=== PATIENT | male | born 1970 | race African-American/Black ===

== ENCOUNTER 2020-06-05 10:43 | Outpatient (CLI) | payer OTHER, SELFPAY ==
--- NOTE | 2020-06-05 11:23 | EST_ITS ---
Patient Info Name: Fernando Rg Age: 49 years : 1970 Gender: Male Ht: 71 in Wt: 275 lbs BSA: 2.55 m2 Exam Date: 06/05/2020 11:34 AM Exam Location: [facility] Stress Patient Status: Outpatient Admit Date: 06/05/2020 Staff Ordering Physician: Della Landaverde NP Attending Provider: Della Landaverde NP Exercise Technologist: Shantelle Frederick RDCS Exercise Physician: Jesus Manuel Lagunas DO Exam Type: CA stress test treadmill Study Info Indications R07.9 - Chest pain, unspecified A treadmill exercise stress test was performed. Summary 1. 1. Negative Nathen exercise stress test for ischemic ST changes by ECG criteria. 2. 2. Good functional capacity, achieving 10 METs of workload. 3. 3. Appropriate HR response to exercise. 4. 4. Appropriate HR recovery at 1 minute post exercise. 5. 5. No imaging with stress testing. 6. 6. Patient informed of the above results. Protocol: Nathen Stress ECG Details Stage: REST Duration (min): 3 min : 19 sec Speed (mph): 0.0 Grade (%): 0 HR (bpm): 79 SBP (mmHg): 136 DBP (mmHg): 98 METS: --- Stage: REST Duration (min): 5 min : 48 sec Speed (mph): 0.0 Grade (%): 0 HR (bpm): 80 SBP (mmHg): 136 DBP (mmHg): 98 METS: --- Stage: STAGE 1 Duration (min): 1 min : 0 sec Speed (mph): 1.7 Grade (%): 10 HR (bpm): 103 SBP (mmHg): 136 DBP (mmHg): 98 METS: --- Stage: STAGE 1 Duration (min): 2 min : 0 sec Speed (mph): 1.7 Grade (%): 10 HR (bpm): 114 SBP (mmHg): 136 DBP (mmHg): 98 METS: --- Stage: STAGE 1 Duration (min): 3 min : 0 sec Speed (mph): 1.7 Grade (%): 10 HR (bpm): 115 SBP (mmHg): 183 DBP (mmHg): 63 METS: --- Stage: STAGE 2 Duration (min): 1 min : 0 sec Speed (mph): 2.5 Grade (%): 12 HR (bpm): 124 SBP (mmHg): 183 DBP (mmHg): 63 METS: --- Stage: STAGE 2 Duration (min): 2 min : 0 sec Speed (mph): 2.5 Grade (%): 12 HR (bpm): 129 SBP (mmHg): 202 DBP (mmHg): 74 METS: --- Stage: STAGE 2 Duration (min): 3 min : 0 sec Speed (mph): 2.5 Grade (%): 12 HR (bpm): 133 SBP (mmHg): 202 DBP (mmHg): 74 METS: --- Stage: STAGE 3 Duration (min): 1 min : 0 sec Speed (mph): 3.4 Grade (%): 14 HR (bpm): 150 SBP (mmHg): 176 DBP (mmHg): 69 METS: --- Stage: STAGE 3 Duration (min): 2 min : 0 sec Speed (mph): 3.4 Grade (%): 14 HR (bpm): 159 SBP (mmHg): 176 DBP (mmHg): 69 METS: --- Stage: STAGE 3 Duration (min): 2 min : 33 sec Speed (mph): 3.4 Grade (%): 14 HR (bpm): 168 SBP (mmHg): 176 DBP (mmHg): 69 METS: --- Stage: RECOVERY Duration (min): 0 min : 26 sec Speed (mph): 0.0 Grade (%): 0 HR (bpm): 163 SBP (mmHg): 134 DBP (mmHg): 79 METS: --- Stage: RECOVERY Duration (min): 1 min : 26 sec Speed (mph):
== END 2020-06-05 10:44 | disposition home or self-care (01) ==
PROVIDERS: PCP Internal Medicine; Visit Provider Nurse Practitioner
DX: R07.9 Chest pain, unspecified (principal)
CPT/HCPCS: 93017

== ENCOUNTER 2020-06-06 15:13 | Outpatient (CLI) | payer OTHER, SELFPAY ==
--- NOTE | ~2020-06-06 | CT_ITS ---
EXAMINATION: CT diagnostic chest wo con EXAM DATE: 06/06/2020 15:44 INDICATION: R91.1 - Solitary pulmonary nodule. TECHNIQUE: Spiral CT of the chest without contrast. Axial, coronal and sagittal images were reviewe d. Coronal maximum intensity pixel images of chest reviewed. The dose-length product (DLP) for this examination was 370.51 mGy-cm. The exposure was tailored according to patient size (auto mA exposur e control), and iterative reconstruction (ASIR) was used as additional dose reduction technique. The re is no prior study for comparison. FINDINGS: There is nodule measuring about 6 mm greatest axial dimension within the left upper lobe. Could be postinfectious but there are also some small spiculation suspected. Recommend 3 month follow -up low-dose chest CT. There is lingular calcified granuloma and some linear scarring. Other smaller regions of scattered postinfectious residua. There are no pleural or pericardial effusions. Tracheobronchial tree is patent. There is no media stinal, hilar or axillary lymphadenopathy. There is no pneumothorax. Heart normal in size. No e vidence of coronary arterial calcification. Upper abdomen is unremarkable. The bones are unremarka ble. IMPRESSION: 1. Indeterminate left upper lobe 6 mm nodule; recommend 3 month follow-up chest CT without contrast. 2. Scattered regions of post infectious residua. Reviewed, dictated and finalized at location A. IMPRESSION: 1. Indeterminate left upper lobe 6 mm nodule; recommend 3 month follow-up ches t CT without contrast. 2. Scattered regions of post infectious residua.
== END 2020-06-06 15:14 | disposition home or self-care (01) ==
PROVIDERS: PCP Internal Medicine; Visit Provider Nurse Practitioner
DX: R91.1 Solitary pulmonary nodule (principal)
CPT/HCPCS: 71250

== ENCOUNTER 2020-09-16 10:04 | Outpatient (CLI) | payer OTHER, SELFPAY ==
--- NOTE | ~2020-09-16 | CT_ITS ---
EXAMINATION: CT diagnostic chest wo con EXAM DATE: 09/16/2020 10:40 INDICATION: R91.1 - Solitary pulmonary nodule. TECHNIQUE: Spiral CT of the chest without contrast. Axial, coronal and sagittal images of the chest were reviewed. Coronal maximum intensity pixel images of chest reviewed. The dose-length product ( DLP) for this examination was 274.87 mGy-cm. The exposure was tailored according to patient size (au to mA exposure control), and iterative reconstruction (ASIR) was used as additional dose reduction [place]. Comparison is made to prior examination from 06/06/2020. FINDINGS: Previously seen indeterminate left upper lobe 6 mm nodule has resolved. This was probably inflammatory process. Lingular calcified granuloma and other scattered bibasilar and lingular postinf ectious residua unchanged. No suspicious findings. There are no pleural or pericardial effusions. Tracheobronchial tree is patent. There is no mediastinal, hilar or axillary lymphadenopathy. Ther e is no pneumothorax. Heart normal in size. No evidence of coronary arterial calcification. Uppe r abdomen is unremarkable. There is thoracic spondylosis without osteoblastic or osteolytic lesions identified. IMPRESSION: 1. Resolution of previously seen left upper lobe nodule. 2. Scattered postinfectious residua. Reviewed, dictated and finalized at location G.
== END 2020-09-16 10:05 | disposition home or self-care (01) ==
LOC: ANHIMG 10:07
PROVIDERS: PCP Internal Medicine; Visit Provider Nurse Practitioner
DX: R91.1 Solitary pulmonary nodule (principal)
CPT/HCPCS: 71250

== ENCOUNTER → 2020-12-01 01:23 | Outpatient (CLI) | payer OTHER, SELFPAY ==
[2020-12-01 19:38] LABS: SARS-CoV-2 RNA PCR Negative
== END ==
PROVIDERS: PCP Internal Medicine; Visit Provider Internal Medicine Gastroenterology
DX: Z20.822 Contact with and (suspected) exposure to COVID-19 (principal)
CPT/HCPCS: C9803; U0003; U0005

== ENCOUNTER 2020-12-04 02:23 | Day surgery (SDC) | payer OTHER, SELFPAY ==
[2020-11-23 14:09] VITALS: BMI 38.4
[2020-12-04 11:00] VITALS: BP 158/118; PULSE 87; RESP 18; TEMP 36; O2SAT 99; BMI 38.7
[2020-12-04] MEDS: LACTATED RINGERS 1,000 ML 150 ML IV CONT (11:11)
--- NOTE | 2020-12-04 11:18 | WPDANESEPPF ---
Anes - Initial Pre Proc Eval Procedure: Operation Date: 12/04/20 12:00 Proposed Procedures p Screening Colonoscopy - Joseph Parra MD Date/Time: 12/04/20 11:18 Surgeon: Joseph Parra MD Pre Op Diagnosis: neoplasm screening Patient Data Age: 50 Gender: M Height: 1.8 m Weight: 126.1 kg Last Vital Signs Temp 96.8 F L 12/04/20 11:00 Pulse 87 12/04/20 11:00 Resp 18 12/04/20 11:00 BP 158/118 H 12/04/20 11:00 Pulse Ox 99 12/04/20 11:00 Allergies Allergy/AdvReac Type Severity Reaction Status Date / Time No Known Allergies Allergy Verified 12/04/20 10:59 Home Medications Medication Instructions Recorded Confirmed Type atorvastatin 10 mg tablet 10 mg PO DAILY #90 tablet 05/25/20 11/23/20 Rx garlic 300 mg capsule 300 mg PO DAILY 09/27/20 11/23/20 History multivitamin with iron 1 tablet PO DAILY 09/27/20 11/23/20 History hydrochlorothiazide 12.5 mg tablet 12.5 mg PO DAILY #90 tablet 10/11/20 11/23/20 Rx Patient hx anesthesia problems: none Family hx anesthesia problems: none PMFSH Past Medical History Medical History (Updated 10/11/20 @ 08:02 by Mackenzie Erwin NP) FH: HTN (hypertension) Hyperlipidemia Lung nodule Family History Family History Mother Hypertension Sibling Diabetes mellitus Hypertension Grandparent Diabetes mellitus Social History Social History Social History: Caffeine-Coffee&tea, 1 cup daily Smoking status: Never smoker Alcohol intake: current Alcohol use details: Vodka occasionally Substance use: current Substance use type: does not use Living arrangements: with family Gender identity (if verbalized by the patient): Male Sexual Orientation (if Verbalized by the Patient): Straight or Heterosexual Spiritual care concerns: No Agree to blood products: Yes Anes - Eval Final PreProcedure Day of Procedure 12/04/20 11:18 Patient weight: morbidly obese Heart: regular rate and rhythm Lungs: clear to auscultation Airway: Mallampati scale class III Neurological: alert and oriented Last oral intake: >/= 8 hours ASA classification: III Emergent: no Anesthetic plan: proceed Anesthesia type and monitoring: general GIVS and standard monitoring Informed Consent: The patient's anesthetic plan and its attendant risks and benefits were discussed with the patient/family/POA. Questions were solicited and answers provided to the satisfaction of the patient/family/POA.
--- NOTE | 2020-12-04 11:20 | PM.HPGS ---
History of Present Illness History of Present Illness Consent: Risks, benefits, and alternatives have been discussed and questions answered. Patient agrees to proceed with procedure. Chief complaint: neoplasm screening Narrative: Fernando Rg Jr. is a 50 year old male here for first screening colonoscopy Review of Systems Constitutional: Constitutional: Denies headache(s) and Denies weakness Eyes: Eyes: Denies blurry vision ENT: Reports Normal hearing present, Denies headache(s) and Denies neck pain Cardiovascular: Cardiovascular: Denies chest pain and Denies dyspnea Respiratory: Respiratory: Denies dyspnea Gastrointestinal: Gastrointestinal: Reports no additional gastrointestinal complaints Genitourinary: Genitourinary: Denies dysuria Musculoskeletal: Musculoskeletal: Denies neck pain Integumentary/Breasts: Skin/Breast: Denies dry skin Neurologic: Reports Normal hearing present, Denies headache(s) and Denies weakness Psychiatric: Psychiatric: Denies anxiety Endocrine: Endocrine: Denies change in body appearance Hematologic/Lymphatic: Hematologic/Lymphatic: Denies easy bleeding Allergic/Immunologic: Allergic/Immunologic: Denies urticaria PMFSH Past Medical History Medical History (Updated 10/11/20 @ 08:02 by Mackenzie Erwin NP) FH: HTN (hypertension) Hyperlipidemia Lung nodule Family History Family History Mother Hypertension Sibling Diabetes mellitus Hypertension Grandparent Diabetes mellitus Social History Social History Social History: Caffeine-Coffee&tea, 1 cup daily Smoking status: Never smoker Alcohol intake: current Alcohol use details: Vodka occasionally Substance use: current Substance use type: does not use Living arrangements: with family Gender identity (if verbalized by the patient): Male Sexual Orientation (if Verbalized by the Patient): Straight or Heterosexual Spiritual care concerns: No Agree to blood products: Yes Meds Home Medications and Allergies Home Medications Medication Instructions Recorded Confirmed Type atorvastatin 10 mg tablet 10 mg PO DAILY #90 tablet 05/25/20 11/23/20 Rx garlic 300 mg capsule 300 mg PO DAILY 09/27/20 11/23/20 History multivitamin with iron 1 tablet PO DAILY 09/27/20 11/23/20 History hydrochlorothiazide 12.5 mg tablet 12.5 mg PO DAILY #90 tablet 10/11/20 11/23/20 Rx Allergies Allergy/AdvReac Type Severity Reaction Status Date / Time No Known Allergies Allergy Verified 12/04/20 10:59 Vital Signs Vital Signs - 24 hr 12/04/20 11:00 Temperature 96.8 F L Pulse Rate 87 Respiratory Rate 18 Blood Pressure 158/118 H Pulse Oximetry 99 Exam Const: General: comfortable and no acute distress HENMT: General nose exam: Normal nares present Eyes: General: appearance normal, both eyes and all related structures Neck: Neck: no JVD Resp: Auscultation: clear to auscultation bilaterally Cardio: Rate: regular rate Rhythm: regular rhythm GI: Inspection: non-distended GI Palp: Yes Soft to palpation Skin: General skin exam: normal color Neuro: General: gait normal Speech: normal speech Extrem: General: normal to inspection Psych: Mental Status: mental status grossly normal Assessment and Plan Assessment and plan (1) Screening for colon cancer: Code(s): Z12.11 - Encounter for screening for malignant neoplasm of colon Status: Acute Assessment and Plan: colonoscopy
[2020-12-04 11:39] VITALS: BP 134/72; PULSE 82; RESP 18; O2SAT 96
[2020-12-04 11:49] VITALS: BP 106/79; PULSE 74; RESP 14; O2SAT 98
[2020-12-04 12:01] VITALS: BP 119/78; PULSE 80; RESP 16; O2SAT 99
--- NOTE | 2020-12-04 12:22 | SUR.PHASEII ---
Pt son attempted to be contacted multiple times with no success. pt son called back. pt was able to reach son. awaiting for son for cone picker.
== END 2020-12-04 12:43 | disposition home or self-care (01) ==
PROVIDERS: PCP Internal Medicine; Visit Provider Internal Medicine Gastroenterology
PROC: 0DJD8ZZ Inspection of Lower Intestinal Tract, Via Natural or Artificial Opening Endoscopic (ICD-10-PCS; CPT 45378; principal; 2020-12-04 12:00)
DX: Z12.11 Encounter for screening for malignant neoplasm of colon (principal); K64.8 Other hemorrhoids; K64.4 Residual hemorrhoidal skin tags; I10 Essential (primary) hypertension; E78.5 Hyperlipidemia, unspecified; E66.01 Morbid (severe) obesity due to excess calories; Z68.38 Body mass index [BMI] 38.0-38.9, adult
CPT/HCPCS: 45378; J7120

== ENCOUNTER 2021-04-17 09:53 | Outpatient (CLI) | payer OTHER, SELFPAY ==
[2021-04-17 11:46] LABS: Anion Gap 5 mmol/L (8-16); Blood Urea Nitrogen 10 mg/dL (9-20); Calcium 9.6 mg/dL (8.4-10.2); Carbon Dioxide 31 mmol/L (22-30); Chloride 104 mmol/L (98-107); Cholesterol 250 mg/dL (0-200); Estimated Glomerular Filt Rate > 60; Glucose 100 mg/dL (65-110); HDL Direct 52 mg/dL; Potassium 4.1 mmol/L (3.4-5.0); Sodium 140 mmol/L (137-145); Triglycerides 139 mg/dL (<150)
[2021-04-17 11:58] LABS: LDL Cholesterol Direct 158 mg/dL
[2021-04-17 11:59] LABS: Add Urine Microscopic? YES; Appearance Urine Clear (Clear); Bilirubin Urine Negative (Negative); Blood Urine 1+ (Negative); Color Urine Yellow (Yellow); Glucose Urine UA Negative (Negative); Ketones Urine Negative (Negative); Leukocyte Esterase Ur Negative LEU/UL (Negative); Mucus Urine Rare /lpf; Nitrate Urine Negative (Negative); Protein Urine Negative (Negative); RBC Urine 0-2 /hpf (0-2); Specific Grav Ur 1.019 (1.001-1.035); Squamous Epithelial Cell Urine Rare /hpf (Few); Urobilinogen Urine Negative mg/dL (<2.0); WBC Urine 0-3 /hpf
== END 2021-04-17 09:54 | disposition home or self-care (01) ==
PROVIDERS: PCP Internal Medicine; Visit Provider Nurse Practitioner
DX: I10 Essential (primary) hypertension (principal); E78.2 Mixed hyperlipidemia; R31.9 Hematuria, unspecified
CPT/HCPCS: 36415; 80048; 80061; 81001

== ENCOUNTER 2022-01-22 13:04 | Outpatient (CLI) | payer OTHER, SELFPAY ==
[2022-01-22 13:30] LABS: Basophils Absolute Auto 0.1 K/mm3 (0.0-0.1); Eosinophils Absolute Auto 0.3 K/mm3 (0-0.3); Eosinophils Percent Auto 3.4 % (0-4.4); Hematocrit 47.1 % (42.0-52.0); Hemoglobin 16.4 g/dL (14.0-18.0); Immature Granulocyte Absolute 0.03 K/mm3 (0.00-0.031); Immature Granulocyte Percent A 0.4 % (0-0.5); Lymphocytes Absolute Auto 2.34 K/mm3 (0.9-3.2); Lymphocytes Percent Auto 30.5 % (18.3-44.2); Mean Corpuscular HGB Conc 34.8 g/dl (32-36); Mean Corpuscular Hemoglobin 30.9 pg (26-34); Mean Corpuscular Volume 88.7 fl (80-100); Mean Platelet Volume 11.4 fl (7.4-10.4); Monocytes Absolute Auto 0.8 K/mm3 (0.1-0.6); Monocytes Percent Auto 10.1 % (2.6-8.5); Neutrophils Absolute Auto 4.2 K/mm3 (1.3-6.7); Neutrophils Percent Auto 54.6 % (45.5-73.1); Platelet Count Result 266 k/mm3 (150-375); Red Blood Count 5.31 M/mm3 (4.6-6.20); Red Cell Distribution Width 11.9 % (11.5-14.5); White Blood Count 7.7 K/mm3 (4.5-10.0)
[2022-01-22 13:36] LABS: Alanine Aminotransferase 26 U/L (6-50); Albumin Level 4.7 g/dL (3.5-5.1); Alkaline Phosphatase 91 U/L (38-126); Anion Gap 8 mmol/L (8-16); Aspartate Amino Transferase 26 U/L (17-59); Bilirubin,Total 0.6 mg/dL (0.2-1.3); Blood Urea Nitrogen 11 mg/dL (9-20); Calcium 9.2 mg/dL (8.4-10.2); Carbon Dioxide 30 mmol/L (22-30); Chloride 103 mmol/L (98-107); Cholesterol 258 mg/dL (0-200); Estimated Glomerular Filt Rate > 60; Glucose 95 mg/dL (65-110); HDL Direct 44 mg/dL; Sodium 141 mmol/L (137-145); Triglycerides 126 mg/dL (<150)
[2022-01-22 13:47] LABS: LDL Cholesterol Direct 160 mg/dL
[2022-01-22 14:07] LABS: Prostate Specific Antigen 0.5 ng/mL (< OR = 4.0)
== END 2022-01-22 13:05 | disposition home or self-care (01) ==
PROVIDERS: PCP Internal Medicine; Visit Provider Clinical Nurse Specialist
DX: E78.5 Hyperlipidemia, unspecified (principal); Z12.5 Encounter for screening for malignant neoplasm of prostate; Z13.29 Encounter for screening for other suspected endocrine disorder; I10 Essential (primary) hypertension
CPT/HCPCS: 36415; 80053; 80061; 84153; 84443; 85025; G0103

== ENCOUNTER 2022-04-09 14:32 | Outpatient (CLI) | payer OTHER, SELFPAY ==
--- NOTE | ~2022-04-09 | XR_ITS ---
EXAM: XR knee RT 3V DATE: 04/09/2022 14:52 HISTORY: M25.561 - Pain in right knee, fluid on knee . COMPARISON: None available. FINDINGS: Normal mineralization. No fracture or dislocation. No lytic or blastic lesion. Moderate me dial joint space narrowing. Mild tricompartmental osteophytosis. Quadriceps enthesopathy. No erosion or periosteal change. Large volume joint fluid. Soft tissues within normal limits. IMPRESSION: Tricompartmental osteoarthritis. Large joint effusion. Reviewed, dictated and finalized at location K. NT TECHNICAL PROFESSIONAL
== END 2022-04-09 14:33 | disposition home or self-care (01) ==
PROVIDERS: PCP Internal Medicine; Visit Provider Nurse Practitioner
DX: R39.198 Other difficulties with micturition (principal); M17.11 Unilateral primary osteoarthritis, right knee; M25.461 Effusion, right knee
CPT/HCPCS: 73562

== ENCOUNTER 2023-06-05 13:39 | Outpatient (CLI) | payer OTHER, SELFPAY ==
[2023-06-05 14:05] LABS: Basophils Absolute Auto 0.1 K/mm3 (0.0-0.1); Eosinophils Absolute Auto 0.5 K/mm3 (0-0.3); Eosinophils Percent Auto 7.6 % (0-4.4); Hematocrit 48.1 % (42.0-52.0); Hemoglobin 16.6 g/dL (14.0-18.0); Immature Granulocyte Absolute 0.02 K/mm3 (0.00-0.031); Immature Granulocyte Percent A 0.3 % (0-0.5); Lymphocytes Absolute Auto 1.77 K/mm3 (0.9-3.2); Lymphocytes Percent Auto 29.8 % (18.3-44.2); Mean Corpuscular HGB Conc 34.5 g/dl (32-36); Mean Corpuscular Hemoglobin 31.1 pg (26-34); Mean Corpuscular Volume 90.2 fl (80-100); Mean Platelet Volume 11.9 fl (7.4-10.4); Monocytes Absolute Auto 0.8 K/mm3 (0.1-0.6); Monocytes Percent Auto 13.8 % (2.6-8.5); Neutrophils Absolute Auto 2.8 K/mm3 (1.3-6.7); Neutrophils Percent Auto 47.5 % (45.5-73.1); Platelet Count Result 244 k/mm3 (150-375); Red Blood Count 5.33 M/mm3 (4.6-6.20); Red Cell Distribution Width 12.3 % (11.5-14.5); White Blood Count 5.9 K/mm3 (4.5-10.0)
[2023-06-05 15:41] LABS: Alanine Aminotransferase 29 U/L (6-50); Albumin Level 4.3 g/dL (3.5-5.1); Alkaline Phosphatase 80 U/L (38-126); Anion Gap 6 mmol/L (8-16); Aspartate Amino Transferase 32 U/L (17-59); Bilirubin,Total 0.7 mg/dL (0.2-1.3); Blood Urea Nitrogen 12 mg/dL (9-20); Calcium 9.3 mg/dL (8.4-10.2); Carbon Dioxide 28 mmol/L (22-30); Chloride 106 mmol/L (98-107); Cholesterol 228 mg/dL (0-200); Estimated Glomerular Filt Rate > 60; Glucose 92 mg/dL (65-110); HDL Direct 38 mg/dL; Sodium 140 mmol/L (137-145); Triglycerides 142 mg/dL (<150)
[2023-06-05 15:53] LABS: LDL Cholesterol Direct 146 mg/dL
[2023-06-05 16:16] LABS: Prostate Specific Antigen 0.7 ng/mL (< OR = 4.0)
== END 2023-06-05 13:40 | disposition home or self-care (01) ==
LOC: ANHLAB 13:41
PROVIDERS: PCP Internal Medicine; Visit Provider Clinical Nurse Specialist
DX: I10 Essential (primary) hypertension (principal); E78.5 Hyperlipidemia, unspecified; Z12.5 Encounter for screening for malignant neoplasm of prostate; R31.9 Hematuria, unspecified
CPT/HCPCS: 36415; 80053; 80061; 84153; 84443; 85025; G0103